=== PATIENT | female | born 1935 | race Caucasian/White ===

== ENCOUNTER → 2016-07-16 | Outpatient (CLI) | payer MEDICARE, BC | END | disposition home or self-care (01) | LOC: MW.CHIM 08:31 | PROVIDERS: ATTEND Internal Medicine | DX: R35.0 Frequency of micturition (principal); N39.0 Urinary tract infection, site not specified; H26.9 Unspecified cataract | CPT/HCPCS: 81001; 87086; 87088; 87186; 99214 ==

== ENCOUNTER → 2016-08-24 | Outpatient (CLI) | payer MEDICARE, BC | LOC: MW.CHIM 08:03 | PROVIDERS: ATTEND Internal Medicine | DX: N39.0 Urinary tract infection, site not specified (principal); I10 Essential (primary) hypertension; E03.9 Hypothyroidism, unspecified | CPT/HCPCS: 81001; 87086; 99214 ==

== ENCOUNTER 2017-07-27 11:18 | Emergency (ER) | payer MEDICARE, BC ==
[2017-07-27] MEDS ORDERED: Ketorolac 60 MG/2 ML SDV IM ONE (11:20)
--- NOTE | 2017-07-27 11:26 | EDM.PDOC ---
ED HPI GENERAL MEDICAL PROBLEM - General Stated Complaint: AMB Time Seen by Provider: 07/27/17 11:18 - History of Present Illness INITIAL COMMENTS - FREE TEXT/NARRATIVE: HISTORY AND PHYSICAL: History of present illness: The patient is an 82-year-old female who follows in our clinic and has a history of hypertension and hypothyroidism and presents via EMS after she slipped on some ice wearing some low heel boots and landed on her left back/rib area and hit her head. The patient says she did not pass out or black out and has no headache but she did hit her head. She's not currently on any blood thinners. She has no neck pain and no midline back pain but has pain at the posterior left rib area and says it radiates around and is worse with movement and deep breaths. She's not nauseated and has no abdominal complaints and has no pelvis or hip pain. None of her extremities are painful. Prior to these events she was in her usual state of good health and had no systemic complaints. Patient says she was seen in the clinic a few days ago and was placed on antibiotics for UTI. According to the computer she was seen on July 22 and had a positive urine culture for Escherichia coli and is currently on antibiotics. Review of systems: As per history of present illness and below otherwise all systems reviewed and negative. Past medical history: As per history of present illness and as reviewed below otherwise noncontributory. Surgical history: As per history of present illness and as reviewed below otherwise noncontributory. Social history: No reported history of drug or alcohol abuse. Family history: As per history of present illness and as reviewed below otherwise noncontributory. Physical exam: Gen.: Well-developed well-nourished thin female who is nontoxic and vital signs have been reviewed by me. Patient moves easily in the bed but does complain of some discomfort when she tries to sit up. HEENT: Atraumatic, normocephalic, pupils reactive, negative for conjunctival pallor or scleral icterus, mucous membranes moist, throat clear, neck supple, nontender, trachea midline. There is no evidence of any soft tissue scalp injury or facial injuries and there are no midline step-offs or defects of the cervical spine. Lungs: Clear to auscultation, breath sounds equal bilaterally, chest wall/ribs on the left posterior area are tender without crepitus ecchymosis or defects or deformities. Heart: S1S2, regular, negative for clicks, rubs, or JVD. Abdomen: Soft, nondistended, nontender. Negative for masses or hepatosplenomegaly. Negative for costovertebral tenderness. Pelvis: Stable nontender. No lateral hip tenderness Genitourinary: Deferred. Rectal: Deferred. Extremities: Atraumatic, negative for cords or calf pain. Neurovascular unremarkable. Full range of motion without defects or deficits Neuro: Awake, alert, oriented. Cranial nerves II through XII unremarkable. Cerebellum unremarkable. Motor and sensory unremarkable throughout. Exam nonfocal. Back: There are no midline step-offs tenderness defects of the thoracic or lumbar spine but there is the posterior left rib pain as described above. There is no posterior pelvis pain Diagnostics: X-ray of left ribs with chest x-ray, thoracic spine x-ray, CT scan of the head, EKG, CBC and CMP Therapeutics: Toradol Patient is currently on antibiotics for her UTI Patient is pain-free with the small dose of Toradol. I've explained to her all testing results and that she will likely be sore tomorrow and she use over-the- counter medications for pain apply ice to areas of discomfort and follow-up with her provider in the clinic. I've also advised her to increase duration as her BUN is 20. Impression: Fall with left chest wall/rib contusion, closed head injury stable; recently diagnosed UTI on antibiotics Definitive disposition and diagnosis as appropriate pending reevaluation and review of above. 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: Musculoskeletal History: Reports: None Neurological History: Reports: None Psychiatric History: Reports: None Endocrine/Metabolic History: Reports: None Hematologic History: Reports: None Immunologic History: Reports: None Oncologic (Cancer) History: Reports: None Dermatologic History: Reports: None - Infectious Disease History Infectious Disease History: Reports: Chicken Pox - Past Surgical History Head Surgeries/Procedures: Reports: None HEENT Surgical History: Reports: None GI Surgical History: Reports: None Social & Family History - Family History Family Medical History: Noncontributory - Tobacco Use Smoking Status *Q: Never Smoker - Recreational Drug Use Recreational Drug Use: No ED ROS GENERAL - Review of Systems Review Of Systems: ROS reveals no pertinent complaints other than HPI. ED EXAM, GENERAL - Physical Exam Exam: See Below (See dictation) Course - Vital Signs Last Recorded V/S: Last Vital Signs Temp 36.1 C 07/27/17 11:25 Pulse 66 07/27/17 13:00 Resp 18 07/27/17 13:00 BP 115/69 07/27/17 13:00 Pulse Ox 98 07/27/17 13:00 - Orders/Labs/Meds Orders: Active Orders 24 hr Category Date Time Status EKG Documentation Completion [RC] STAT Care 07/27/17 11:19 Active Head wo Cont [CT] Stat Exams 07/27/17 11:19 Taken Ribs 2V w Chest Lt [CR] Stat Exams 07/27/17 11:20 Taken Thoracic Spine 2V [CR] Stat Exams 07/27/17 11:20 Taken Labs: Laboratory Tests 07/27/17 07/27/17 Range/Units 11:35 11:35 WBC 6.43 (4.0-11.0) K/uL RBC 3.97 L (4.30-5.90) M/uL Hgb 12.5 (12.0-16.0) g/dL Hct 36.7 (36.0-46.0) % MCV 92.4 (80.0-98.0) fL MCH 31.5 (27.0-32.0) pg MCHC 34.1 (31.0-37.0) g/dL RDW Std Deviation 41.1 (28.0-62.0) fl RDW Coeff of [place] 12 (11.0-15.0) % Plt Count 225 (150-400) K/uL MPV 9.00 (7.40-12.00) fL Neut % (Auto) 47.6 L (48.0-80.0) % Lymph % (Auto) 38.4 (16.0-40.0) % [place] % (Auto) 10.6 (0.0-15.0) % Eos % (Auto) 2.8 (0.0-7.0) % Baso % (Auto) 0.6 (0.0-1.5) % Neut # (Auto) 3.1 (1.4-5.7) K/uL Lymph # (Auto) 2.5 H (0.6-2.4) K/uL [place] # (Auto) 0.7 (0.0-0.8) K/uL Eos # (Auto) 0.2 (0.0-0.7) K/uL Baso # (Auto) 0.0 (0.0-0.1) K/uL Nucleated RBC % 0.0 /100WBC Nucleated RBCs # 0 K/uL Sodium 142 (136-145) mmol/L Potassium 4.4 (3.5-5.1) mmol/L Chloride 105 (98-107) mmol/L Carbon Dioxide 29.7 (21.0-32.0) mmol/L BUN 20 H (7.0-18.0) mg/dL Creatinine 1.1 H (0.6-1.0) mg/dL Est Cr Clr Drug Dosing 32.26 mL/min Estimated GFR (MDRD) 47.8 ml/min Glucose 93 (74-106) mg/dL Calcium 9.1 (8.5-10.1) mg/dL Total Bilirubin 0.4 (0.2-1.0) mg/dL AST 22 (15-37) U/L ALT 24 (14-63) U/L Alkaline Phosphatase 73 (46-116) U/L Total Protein 7.2 (6.4-8.2) g/dL Albumin 3.7 (3.4-5.0) g/dL Globulin 3.5 (2.0-3.5) g/dL Albumin/Globulin Ratio 1.1 L (1.3-2.8) Meds: Medications Discontinued Medications Generic Name Dose Route Start Last Admin Trade Name Freq PRN Reason Stop Dose Admin Ketorolac Tromethamine 15 mg 07/27/17 11:35 07/27/17 11:56 Toradol IM 03/03/18 11:36 15 mg ONETIME ONE Administration Departure - Departure Time of Disposition: 13:41 Disposition: Home, Self-Care 01 Condition: Good Clinical Impression: Fall Qualifiers: Encounter type: initial encounter Qualified Code(s): W19.XXXA - Unspecified fall, initial encounter Contusion of chest wall Qualifiers: Encounter type: initial encounter Laterality: left Qualified Code(s): S20.212A - Contusion of left front wall of thorax, initial encounter Closed head injury Qualifiers: Encounter type: initial encounter Qualified Code(s): S09.90XA - Unspecified injury of head, initial encounter - Discharge Information Additional Instructions: The following information is given to patients seen in the emergency department who are being discharged to home. This information is to outline your options for follow-up care. We provide all patients seen in our emergency department with a follow-up referral. The need for follow-up, as well as the timing and circumstances, are variable depending upon the specifics of your emergency department visit. If you don't have a primary care physician on staff, we will provide you with a referral. We always advise you to contact your personal physician following an emergency department visit to inform them of the circumstance of the visit and for follow-up with them and/or the need for any referrals to a consulting specialist. The emergency department will also refer you to a specialist when appropriate. This referral assures that you have the opportunity for followup care with a specialist. All of these measure are taken in an effort to provide you with optimal care, which includes your followup. Under all circumstances we always encourage you to contact your private physician who remains a resource for coordinating your care. When calling for followup care, please make the office aware that this follow-up is from your recent emergency room visit. If for any reason you are refused follow-up, please contact the [facility] emergency department at and ask to speak to the emergency department charge nurse. [facility] Primary care- Internal Medicine and Family [address] [address] Please expect aches and pains the next few days to one week. Apply ice to or areas of swelling and discomfort for the next 24-36 hours and then switch to heat. Please use [id number] medications for pain and discomfort and call and follow-up in the clinic for follow-up care in the next few days. Return to ER as needed and as discussed - My Orders Last 24 Hours: My Active Orders 07/27/17 11:19 EKG Documentation Completion [RC] STAT Head wo Cont [CT] Stat 07/27/17 11:20 Ribs 2V w Chest Lt [CR] Stat Thoracic Spine 2V [CR] Stat - Assessment/Plan Last 24 Hours: My Active Orders 07/27/17 11:19 EKG Documentation Completion [RC] STAT Head wo Cont [CT] Stat 07/27/17 11:20 Ribs 2V w Chest Lt [CR] Stat Thoracic Spine 2V [CR] Stat
[2017-07-27] MEDS ORDERED: Ketorolac 15 MG/ML SDV IM ONE (11:35)
[2017-07-27 14:04] VITALS: BP 143/71
--- NOTE | 2017-07-29 06:02 | CR ---
EXAM DATE: 07/27/17 PATIENT'S AGE: 82 Patient: EDWINA BERNAL Facility: [place], [place] Site . Site : 1935 Study: XRay Chest Left ribs/chest [id number]/3/2018 12:42:48 PM Ordering Physician: Lottie Arriaga Final Report: INDICATION: Trauma. Fall. Left-sided chest pain. TECHNIQUE: PA chest and 2 detailed views of the left-sided ribs. FINDINGS: Clear lungs. Normal heart size and pulmonary vascularity. Postsurgical change right shoulder. Degenerative change of the shoulder. Detailed views of the left-sided ribs are negative for acute displaced rib fractures. IMPRESSION: Negative chest and detailed left rib views. Dictated by Luis E Bruner MD @ Jul 27 2017 1:25PM (Electronic Signature) Report Signed by Proxy. BERTHA
--- NOTE | 2017-07-29 06:03 | CR ---
EXAM DATE: 07/27/17 PATIENT'S AGE: 82 Patient: EDWINA BERNAL Facility: [place], [place] Site . Site : 1935 Study: XRay Spine Thoracic [id number]/3/2018 12:43:07 PM Ordering Physician: Lottie Arriaga Final Report: INDICATION: Trauma. Fall. Pain. TECHNIQUE: Two views of the thoracic spine. FINDINGS: There are 12 thoracic vertebral bodies. No acute fracture. There is a minor thoracic curvature which may be more positional than real. Slight spurring of the lower most thoracic spine. IMPRESSION: No acute thoracic spine fracture identified. Dictated by Luis E Bruner MD @ Jul 27 2017 1:25PM (Electronic Signature) Report Signed by Proxy. BERTHA
--- NOTE | 2017-07-29 06:04 | CT ---
EXAM DATE: 07/27/17 PATIENT'S AGE: 82 Patient: EDWINA BERNAL Facility: [place], [place] Site . Site : 1935 Study: CT Head [id number] 12:45:45 PM Ordering Physician: Lottie Arriaga Final Report: INDICATION: Trauma. Fall. Pain. TECHNIQUE: Noncontrast head CT. COMPARISON: February 02, 2012. FINDINGS: There is no evidence for acute intracranial hemorrhage, hydrocephalus, mass effect, or shift of midline structures. No evidence for acute ischemic change or infarction. There is minimal spur small-vessel ischemic type change in the deep white matter of the cerebral hemispheres which is chronic. No calvarial or skullbase fracture identified. The included paranasal sinuses and mastoid air cells are clear. IMPRESSION: Negative noncontrast head CT. No significant change. Please note that all CT scans at this facility use dose modulation, iterative reconstruction, and/or weight-based dosing when appropriate to reduce radiation dose to as low as reasonably achievable. Dictated by Luis E Bruner MD @ Jul 27 2017 1:36PM (Electronic Signature) Report Signed by Proxy. BERTHA
== END 2017-07-27 14:02 | disposition home or self-care (01) ==
LOC: MW.ED 11:18
DX: S20.212A Contusion of left front wall of thorax, initial encounter (principal); S09.90XA Unspecified injury of head, initial encounter; N39.0 Urinary tract infection, site not specified; I10 Essential (primary) hypertension; E03.9 Hypothyroidism, unspecified; Z79.899 Other long term (current) drug therapy; Z88.1 Allergy status to other antibiotic agents; W00.0XXA Fall on same level due to ice and snow, initial encounter
CPT/HCPCS: 36415; 70450; 71101; 72070; 80053; 85025; 93005; 96372; 99285; J1885; 99284

== ENCOUNTER 2018-10-01 10:41 | Emergency (ER) | payer MEDICARE, BC ==
--- NOTE | 2018-10-01 11:29 | EDM.PDOC ---
ED HPI GENERAL MEDICAL PROBLEM - General Chief Complaint: Genitourinary Problem Stated Complaint: UTI Time Seen by Provider: 10/01/18 11:15 Source of Information: Reports: Patient History Limitations: Reports: No Limitations - History of Present Illness INITIAL COMMENTS - FREE TEXT/NARRATIVE: History of present illness: []Patient has had 2 days of pain with urination that is progressively worsening. She denies any fevers, chills, back pain, vomiting or diarrhea. States she has had UTIs in the past and this feels exactly the same. Review of systems: As per history of present illness and below otherwise all systems reviewed and negative. Past medical history: As per history of present illness and as reviewed below otherwise noncontributory. Surgical history: As per history of present illness and as reviewed below otherwise noncontributory. Social history: No reported history of drug or alcohol abuse. Family history: As per history of present illness and as reviewed below otherwise noncontributory. Physical exam: General: Well developed, well nourished in NAD HEENT: Atraumatic, normocephalic, pupils reactive, negative for conjunctival pallor or scleral icterus, mucous membranes moist, throat clear, neck supple, nontender, trachea midline. Lungs: Clear to auscultation, breath sounds equal bilaterally, chest nontender. Heart: S1S2, regular, negative for clicks, rubs, or JVD. Abdomen: NABS, Soft, nondistended, nontender. Negative for masses or hepatosplenomegaly. Negative for costovertebral tenderness. Pelvis: Stable nontender. Genitourinary: Deferred. Rectal: Deferred. Extremities: Atraumatic, negative for cords or calf pain. Neurovascular unremarkable. Neuro: Awake, alert, oriented. Cranial nerves II through XII unremarkable. Cerebellum unremarkable. Motor and sensory unremarkable throughout. Exam nonfocal. Skin:warm and dry Diagnostics: UA positive leuk esterase Therapeutics: Pyridium ED Course: Stable Impression: UTI Prescriptions: Nitrofurantoin, pyridium Plan: Increase fluids, Take meds as directed, follow up with your primary care physician, return to ER if symptoms worsen or change. Definitive disposition and diagnosis as appropriate pending reevaluation and review of above. Pelvic Pain Score (Numeric/FACES): 8 - Related Data Allergies Allergy/AdvReac Type Severity Reaction Status Date / Time antibiotic unknown Allergy Confusion Uncoded 07/27/17 11:24 Home Meds: Home Meds Levothyroxine 112 mcg PO DAILY 01/26/16 [History] Losartan/Hydrochlorothiazide [Losartan-HCTZ 100-25 MG] 1 each PO DAILY 01/26/16 [History] Nitrofurantoin Macrocrystal [Macrodantin] 100 mg PO BID #14 capsule 10/01/18 [Rx ] Phenazopyridine [Pyridium] 200 mg PO TID #9 tab 10/01/18 [Rx] Past Medical History HEENT History: Reports: None Cardiovascular History: Reports: Hypertension Respiratory History: Reports: None Gastrointestinal History: Reports: None Genitourinary History: Reports: UTI, Recurrent 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: Musculoskeletal History: Reports: None Neurological History: Reports: None Psychiatric History: Reports: None Endocrine/Metabolic History: Reports: None Hematologic History: Reports: None Immunologic History: Reports: None Oncologic (Cancer) History: Reports: None Dermatologic History: Reports: None - Infectious Disease History Infectious Disease History: Reports: Chicken Pox, Measles, Mumps - Past Surgical History Head Surgeries/Procedures: Reports: None HEENT Surgical History: Reports: None GI Surgical History: Reports: None Social & Family History - Family History Family Medical History: Noncontributory - Tobacco Use Smoking Status *Q: Never Smoker - Recreational Drug Use Recreational Drug Use: No ED ROS GENERAL - Review of Systems Review Of Systems: ROS reveals no pertinent complaints other than HPI. ED EXAM, RENAL/ - Physical Exam Exam: See Below (See history of present illness) Course - Vital Signs Last Recorded V/S: Last Vital Signs Temp 97.1 F 10/01/18 10:52 Pulse 92 10/01/18 10:52 Resp 18 10/01/18 10:52 BP 132/97 H 10/01/18 10:52 Pulse Ox 96 10/01/18 10:52 - Orders/Labs/Meds Orders: Active Orders 24 hr Category Date Time Status CULTURE URINE [RM] Stat Lab 10/01/18 11:00 Received Labs: Laboratory Tests 10/01/18 Range/Units 11:00 Urine Color YELLOW Urine Appearance SLT CLOUDY Urine pH 6.0 (5.0-8.0) Ur Specific [place] 1.020 (1.001-1.035) Urine Protein NEGATIVE (NEGATIVE) mg/dL Urine Glucose (UA) NEGATIVE (NEGATIVE) mg/dL Urine Ketones NEGATIVE (NEGATIVE) mg/dL Urine Occult Blood NEGATIVE (NEGATIVE) Urine Nitrite NEGATIVE (NEGATIVE) Urine Bilirubin NEGATIVE (NEGATIVE) Urine Urobilinogen 0.2 (<2.0) EU/dL Ur Leukocyte Esterase SMALL H (NEGATIVE) Urine RBC 0-2 (0-2/HPF) Urine WBC 10-20 (0-5/HPF) Ur Epithelial Cells FEW (NONE-FEW) Urine Bacteria FEW (NEGATIVE) Meds: Medications Discontinued Medications Generic Name Dose Route Start Last Admin Trade Name Freq PRN Reason Stop Dose Admin Phenazopyridine HCl 200 mg 10/01/18 11:20 Pyridium PO 10/01/18 11:21 ONETIME ONE Departure - Departure Time of Disposition: 11:28 Disposition: Home, Self-Care 01 Condition: Good Clinical Impression: UTI (urinary tract infection) Qualifiers: Urinary tract infection type: site unspecified Hematuria presence: without hematuria Qualified Code(s): N39.0 - Urinary tract infection, site not specified - Discharge Information *PRESCRIPTION DRUG MONITORING PROGRAM REVIEWED*: No *COPY OF PRESCRIPTION DRUG MONITORING REPORT IN PATIENT ANTON: No Prescriptions: Nitrofurantoin Macrocrystal [Macrodantin] 100 mg PO BID #14 capsule Phenazopyridine [Pyridium] 200 mg PO TID #9 tab Referrals: PCP,Unknown [Primary Care Provider] - Additional Instructions: The following information is given to patients seen in the emergency department who are being discharged to home. This information is to outline your options for follow-up care. We provide all patients seen in our emergency department with a follow-up referral. The need for follow-up, as well as the timing and circumstances, are variable depending upon the specifics of your emergency department visit. If you don't have a primary care physician on staff, we will provide you with a referral. We always advise you to contact your personal physician following an emergency department visit to inform them of the circumstance of the visit and for follow-up with them and/or the need for any referrals to a consulting specialist. The emergency department will also refer you to a specialist when appropriate. This referral assures that you have the opportunity for follow-up care with a specialist. All of these measure are taken in an effort to provide you with optimal care, which includes your follow-up. Under all circumstances we always encourage you to contact your private physician who remains a resource for coordinating your care. When calling for follow-up care, please make the office aware that this follow-up is from your recent emergency room visit. If for any reason you are refused follow-up, please contact the [facility] Emergency Department at and asked to speak to the emergency department charge nurse. Take meds as directed, follow up with your primary care physician, return to ER if symptoms worsen or change. [facility] Primary Care [address] [place] [id number] - My Orders Last 24 Hours: My Active Orders 10/01/18 11:00 CULTURE URINE [RM] Stat - Assessment/Plan Last 24 Hours: My Active Orders 10/01/18 11:00 CULTURE URINE [RM] Stat
[2018-10-01] MEDS: Phenazopyridine 200 MG Tab PO ONE (11:44)
[2018-10-01 11:52] VITALS: BP 149/72
== END 2018-10-01 11:52 | disposition home or self-care (01) ==
LOC: MW.ED 10:41
DX: N39.0 Urinary tract infection, site not specified (principal); I10 Essential (primary) hypertension; Z79.899 Other long term (current) drug therapy; Z88.1 Allergy status to other antibiotic agents
CPT/HCPCS: 81001; 87086; 87088; 87186; 99283; A9270

== ENCOUNTER 2019-11-22 09:27 | Emergency (ER) | payer MEDICARE, BC ==
[2019-11-22] MEDS ORDERED: Dexamethasone 4 MG Tab PO ONE (09:45)
[2019-11-22] MEDS ORDERED: Acetaminophen 500 MG Tab PO ONE (09:46)
--- NOTE | 2019-11-22 09:53 | EDM.PDOC ---
ED HPI GENERAL MEDICAL PROBLEM - General Chief Complaint: Genitourinary Problem Stated Complaint: LOWER BACK PAIN Time Seen by Provider: 11/22/19 09:39 - History of Present Illness INITIAL COMMENTS - FREE TEXT/NARRATIVE: History of present illness: [] Patient presents with atraumatic afebrile low back pain that is worse on the right radiates into the right buttocks she denies any difficulty with weakness no trouble urinating no numbness in the lower extremities. There is been no falls no heavy lifting pain started several days ago and has not gotten better by itself. She has not tried anything for the pain. Getting up and down makes it worse being still makes it better no dysuria no fever no cough no congestion no weakness no nausea no vomiting. Review of systems: As per history of present illness and below otherwise all systems reviewed and negative. Past medical history: As per history of present illness and as reviewed below otherwise noncontributory. Surgical history: As per history of present illness and as reviewed below otherwise noncontributory. Social history: No reported history of drug or alcohol abuse. Family history: As per history of present illness and as reviewed below otherwise nonc ontributory. Physical exam: HEENT: Atraumatic, normocephalic, pupils reactive, negative for conjunctival pallor or scleral icterus, mucous membranes moist, throat clear, neck supple, nontender, trachea midline. Lungs: Clear to auscultation, breath sounds equal bilaterally, chest nontender. Heart: S1S2, regular, negative for clicks, rubs, or JVD. Abdomen: Soft, nondistended, nontender. Negative for masses or hepatosplenomegaly. Negative for costovertebral tenderness. Pelvis: Stable nontender. Genitourinary: Deferred. Rectal: Deferred. Extremities: Atraumatic, negative for cords or calf pain. Neurovascular unremarkable. Neuro: Awake, alert, oriented. Cranial nerves II through XII unremarkable. Cerebellum unremarkable. Motor and sensory unremarkable throughout. Exam nonfocal. No saddle anesthesia great toe strength is normal Back: The spine has no focal tenderness at any level there is tenderness and spasm lateral to L3 on the right side with palpable muscle spasm re-creating the pain she is experiencing. Diagnostics: [] Therapeutics: [] Impression: Low back pain with radiculopathy [] Plan: Steroids pain meds muscle spasm medication follow-up with primary care [] Definitive disposition and diagnosis as appropriate pending reevaluation and review of above. lower back Pain Score (Numeric/FACES): 5 - Related Data Allergies Allergy/AdvReac Type Severity Reaction Status Date / Time No Known Allergies Allergy Verified 11/22/19 09:38 Home Meds: Home Meds Levothyroxine 112 mcg PO DAILY 01/26/16 [History] Losartan/Hydrochlorothiazide [Losartan-HCTZ 100-25 MG] 1 each PO DAILY 01/26/16 [History] Metaxalone [Skelaxin] 800 mg PO TID #30 tab 11/22/19 [Rx] predniSONE 60 mg PO WITHBREAKFAST 5 Days #15 tab 11/22/19 [Rx] traMADol [Ultram] 50 mg PO Q6H PRN #20 tab 11/22/19 [Rx] Past Medical History HEENT History: Reports: None Cardiovascular History: Reports: Hypertension Respiratory History: Reports: None Gastrointestinal History: Reports: None Genitourinary History: Reports: UTI, Recurrent 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: Musculoskeletal History: Reports: None Neurological History: Reports: None Psychiatric History: Reports: None Endocrine/Metabolic History: Reports: None Hematologic History: Reports: None Immunologic History: Reports: None Oncologic (Cancer) History: Reports: None Dermatologic History: Reports: None - Infectious Disease History Infectious Disease History: Reports: Chicken Pox - Past Surgical History Head Surgeries/Procedures: Reports: None HEENT Surgical History: Reports: None GI Surgical History: Reports: None Social & Family History - Family History Family Medical History: Noncontributory - Tobacco Use Smoking Status *Q: Never Smoker Second Hand Smoke Exposure: No - Caffeine Use Caffeine Use: Reports: Coffee - Recreational Drug Use Recreational Drug Use: No ED ROS GENERAL - Review of Systems Review Of Systems: See Below ED EXAM, GENERAL - Physical Exam Exam: See Below Course - Vital Signs Last Recorded V/S: Last Vital Signs Temp 36.0 C L 11/22/19 09:36 Pulse 75 11/22/19 09:36 Resp 17 11/22/19 09:36 BP 137/117 H 11/22/19 09:36 Pulse Ox 95 11/22/19 09:36 - Orders/Labs/Meds Orders: Active Orders 24 hr Category Date Time Status Acetaminophen [Tylenol Extra Strength] Med 06/28/20 09:46 Once 1,000 mg PO ONETIME ONE dexAMETHasone Med 11/22/19 09:45 Once 8 mg PO ONETIME ONE Departure - Departure Time of Disposition: 09:48 Disposition: Home, Self-Care 01 Condition: Good Clinical Impression: Low back pain potentially associated with radiculopathy - Discharge Information *PRESCRIPTION DRUG MONITORING PROGRAM REVIEWED*: Not Applicable *COPY OF PRESCRIPTION DRUG MONITORING REPORT IN PATIENT ANTON: Not Applicable Instructions: Acute Back Pain, Adult Referrals: Symone Moreland REBEAMER [Primary Care Provider] - Additional Instructions: The following information is given to patients seen in the emergency department who are being discharged to home. This information is to outline your options for follow-up care. We provide all patients seen in our emergency department with a follow-up referral. The need for follow-up, as well as the timing and circumstances, are variable depending upon the specifics of your emergency department visit. If you don't have a primary care physician on staff, we will provide you with a referral. We always advise you to contact your personal physician following an emergency department visit to inform them of the circumstance of the visit and for follow-up with them and/or the need for any referrals to a consulting specialist. The emergency department will also refer you to a specialist when appropriate. This referral assures that you have the opportunity for follow-up care with a specialist. All of these measure are taken in an effort to provide you with optimal care, which includes your follow-up. Under all circumstances we always encourage you to contact your private physician who remains a resource for coordinating your care. When calling for f ollow-up care, please make the office aware that this follow-up is from your recent emergency room visit. If for any reason you are refused follow-up, please contact the [facility] Emergency Department at and asked to speak to the emergency department charge nurse. Sepsis Event Note (ED) - Evaluation Sepsis Screening Result: No Definite Risk - Focused Exam Vital Signs: Vital Signs Temp Pulse Resp BP Pulse Ox 11/22/19 09:36 36.0 C L 75 17 137/117 H 95 - My Orders Last 24 Hours: My Active Orders 11/22/19 09:45 dexAMETHasone 8 mg PO ONETIME ONE 11/22/19 09:46 Acetaminophen [Tylenol Extra Strength] 1,000 mg PO ONETIME ONE - Assessment/Plan Last 24 Hours: My Active Orders 11/22/19 09:45 dexAMETHasone 8 mg PO ONETIME ONE 11/22/19 09:46 Acetaminophen [Tylenol Extra Strength] 1,000 mg PO ONETIME ONE
[2019-11-22 10:05] VITALS: BP 148/70; PULSE 85
== END 2019-11-22 10:05 | disposition home or self-care (01) ==
LOC: MW.ED 09:27
DX: M54.16 Radiculopathy, lumbar region (principal); I10 Essential (primary) hypertension; Z79.899 Other long term (current) drug therapy
CPT/HCPCS: 99283; A9270; J8540; 99282

== ENCOUNTER 2020-04-12 02:41 | Emergency (ER) | payer MEDICARE, BC ==
[2020-04-12] MEDS ORDERED: Phenazopyridine 200 MG Tab PO ONE (02:57)
--- NOTE | 2020-04-12 03:01 | EDM.PDOC ---
ED HPI GENERAL MEDICAL PROBLEM - General Chief Complaint: Genitourinary Problem Stated Complaint: UTI, BLADDER INFECTION Time Seen by Provider: 04/12/20 02:57 - History of Present Illness INITIAL COMMENTS - FREE TEXT/NARRATIVE: History of present illness: [] She has started burning when she urinates. It is fairly severe burning and bothers her a great deal. She has no flank pain fever nausea or vomiting. Occasional UTIs in the past. September of last year she had E. coli UTI sensitive to tetracycline Keflex Macrodantin and Bactrim. She does not remember what she took. It was resistant to Cipro. Review of systems: As per history of present illness and below otherwise all systems reviewed and negative. Past medical history: As per history of present illness and as reviewed below otherwise noncontributory. Surgical history: As per history of present illness and as reviewed below otherwise noncontributory. Social history: No reported history of drug or alcohol abuse. Family history: As per history of present illness and as reviewed below otherwise noncontributory. Physical exam: Constitutional - well developed, well-nourished and in no acute distress HEENT - normocephalic, no evidence of trauma - external nose and mouth normal - no mass in neck and no JVD - mucosae moist EYES - full EOM, PERRL, no icterus - no evidence of inflammation, injection, or drainage Respiratory - no respiratory distress, equal bilateral expansion. Lungs clear Heart sounds normal with S1 and S2 and no murmur. Abdomen not tender Musculoskeletal no gross deformity of long bones or joints Neurologic - Alert and oriented times four - CN II-XII grossly intact - motor sensory and coordination symmetrically normal Psychiatric - appropriate mood and affect with normal thought content Integument - no rash or evidence of trauma - normal turgor Diagnostics: [] Therapeutics: [] Impression: [] Plan: [] Definitive disposition and diagnosis as appropriate pending reevaluation and review of above. urinary area Pain Score (Numeric/FACES): 8 - Related Data Allergies Allergy/AdvReac Type Severity Reaction Status Date / Time No Known Allergies Allergy Verified 04/12/20 02:53 Home Meds: Home Meds Levothyroxine 112 mcg PO DAILY 01/26/16 [History] Losartan/Hydrochlorothiazide [Losartan-HCTZ 100-25 MG] 1 each PO DAILY 01/26/16 [History] Metaxalone [Skelaxin] 800 mg PO TID #30 tab 11/22/19 [Rx] predniSONE 60 mg PO WITHBREAKFAST 5 Days #15 tab 11/22/19 [Rx] traMADol [Ultram] 50 mg PO Q6H PRN #20 tab 11/22/19 [Rx] Phenazopyridine [Pyridium] 100 mg PO TID #6 tablet 04/12/20 [Rx] cephALEXin [Cephalexin] 250 mg PO TID #21 ml 04/12/20 [Rx] Past Medical History HEENT History: Reports: None Cardiovascular History: Reports: Hypertension Respiratory History: Reports: None Gastrointestinal History: Reports: None Genitourinary History: Reports: UTI, Recurrent 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: Musculoskeletal History: Reports: None Neurological History: Reports: None Psychiatric History: Reports: None Endocrine/Metabolic History: Reports: None Hematologic History: Reports: None Immunologic History: Reports: None Oncologic (Cancer) History: Reports: None Dermatologic History: Reports: None - Infectious Disease History Infectious Disease History: Reports: Chicken Pox - Past Surgical History Head Surgeries/Procedures: Reports: None HEENT Surgical History: Reports: None GI Surgical History: Reports: None Social & Family History - Family History Family Medical History: No Pertinent Family History - Caffeine Use Caffeine Use: Reports: Coffee ED ROS GENERAL - Review of Systems Review Of Systems: Comprehensive ROS is negative, except as noted in HPI. ED EXAM, GENERAL - Physical Exam Exam: See Below Free Text/Narrative:: Physical exam is in the HPI Course - Vital Signs Last Recorded V/S: Last Vital Signs Temp 36.3 C 04/12/20 02:54 Pulse 86 04/12/20 02:54 Resp 18 04/12/20 02:54 BP 146/82 H 04/12/20 02:54 Pulse Ox 96 04/12/20 02:54 - Orders/Labs/Meds Orders: Active Orders 24 hr Category Date Time Status CULTURE URINE [RM] Stat Lab 04/12/20 02:50 Received Labs: Laboratory Tests 04/12/20 Range/Units 02:52 Urine Color YELLOW Urine Appearance CLOUDY Urine pH 6.5 (5.0-8.0) Ur Specific [place] <= 1.005 (1.001-1.035) Urine Protein NEGATIVE (NEGATIVE) mg/dL Urine Glucose (UA) NEGATIVE (NEGATIVE) mg/dL Urine Ketones NEGATIVE (NEGATIVE) mg/dL Urine Occult Blood TRACE-INTACT H (NEGATIVE) Urine Nitrite NEGATIVE (NEGATIVE) Urine Bilirubin NEGATIVE (NEGATIVE) Urine Urobilinogen 0.2 (<2.0) EU/dL Ur Leukocyte Esterase LARGE H (NEGATIVE) Urine RBC 0-3 (0-2/HPF) Urine WBC TO NUMEROUS TO COUNT H (0-5/HPF) Ur Epithelial Cells OCCASIONAL (NONE-FEW) Urine Bacteria 1+ H (NEGATIVE) Urine Mucus LIGHT (NONE-MOD) Meds: Medications Discontinued Medications Generic Name Dose Route Start Last Admin Trade Name Freq PRN Reason Stop Dose Admin Cephalexin 500 mg 04/12/20 03:16 Keflex PO 04/12/20 03:17 ONETIME ONE Phenazopyridine HCl 200 mg 04/12/20 02:57 04/12/20 03:03 Pyridium PO 04/12/20 02:58 200 mg ONETIME ONE Administration Departure - Departure Time of Disposition: 03:21 Disposition: Home, Self-Care 01 Condition: Good Clinical Impression: Acute cystitis - Discharge Information Prescriptions: cephALEXin [Cephalexin] 250 mg PO TID #21 ml Phenazopyridine [Pyridium] 100 mg PO TID #6 tablet Instructions: Urinary Tract Infection, Adult, [id number] Referrals: Symone Moreland NP [Primary Care Provider] - Forms: ED Department Discharge Additional Instructions: [facility] - Primary Care [address] [place], [place] [id number] [place] [address] The following information is given to patients seen in the emergency department who are being discharged to home. This information is to outline your options for follow-up care. We provide all patients seen in our emergency department with a follow-up referral. The need for follow-up, as well as the timing and circumstances, are variable depending upon the specifics of your emergency department visit. If you don't have a primary care physician on staff, we will provide you with a referral. We always advise you to contact your personal physician following an emergency department visit to inform them of the circumstance of the visit and for follow-up with them and/or the need for any referrals to a consulting specialist. The emergency department will also refer you to a specialist when appropriate. This referral assures that you have the opportunity for follow-up care with a specialist. All of these measure are taken in an effort to provide you with optimal care, which includes your follow-up. Under all circumstances we always encourage you to contact your private physician who remains a resource for coordinating your care. When calling for follow-up care, please make the office aware that this follow-up is from your recent emergency room visit. If for any reason you are refused follow-up, please contact the [facility] Emergency Department at and asked to speak to the emergency department charge nurse. Sepsis Event Note (ED) - Focused Exam Vital Signs: Vital Signs Temp Pulse Resp BP Pulse Ox 04/12/20 02:54 36.3 C 86 18 146/82 H 96 - My Orders Last 24 Hours: My Active Orders 04/12/20 02:50 CULTURE URINE [RM] Stat - Assessment/Plan Last 24 Hours: My Active Orders 04/12/20 02:50 CULTURE URINE [RM] Stat
[2020-04-12] MEDS ORDERED: Cephalexin 500 MG Cap PO ONE (03:16)
[2020-04-12 03:38] VITALS: BP 150/75; PULSE 77
== END 2020-04-12 03:40 | disposition home or self-care (01) ==
LOC: MW.ED 02:41
DX: N30.00 Acute cystitis without hematuria (principal); I10 Essential (primary) hypertension; Z79.899 Other long term (current) drug therapy
CPT/HCPCS: 81001; 87086; 87088; 87186; 99283; A9270

== ENCOUNTER 2020-04-23 10:15 | Emergency (ER) | payer MEDICARE, BC ==
--- NOTE | 2020-04-23 10:40 | EDM.PDOC ---
ED HPI GENERAL MEDICAL PROBLEM - General Chief Complaint: Genitourinary Problem Stated Complaint: BLADDING PAIN Time Seen by Provider: 04/23/20 10:27 Source of Information: Reports: Patient History Limitations: Reports: No Limitations - History of Present Illness INITIAL COMMENTS - FREE TEXT/NARRATIVE: Gurpreet with continued dysuria. The patient was seen in this emergency room on 04/12/2020 with a chief complaint of burning with urination. She had no other symptoms. A review of the records indicates she has had occasional UTIs in the past in September of this past year she had an E. coli UTI sensitive to tetracycline, Keflex, Macrodantin and Bactrim. It was resistant to Cipro. She did not recall which antibiotic she took on that occasion. On 04/12 she was prescribed Keflex. Culture grew out E. coli susceptible to cephalosporins. She states she completed her prescription and her symptoms resolved only to recur today. She denies fever, nausea, flank or back pain or any other symptoms. In fact she states she feels very well except for the irritation in her bladder. abdominal Pain Score (Numeric/FACES): 6 - Related Data Allergies Allergy/AdvReac Type Severity Reaction Status Date / Time No Known Allergies Allergy Verified 04/23/20 10:38 Home Meds: Home Meds Levothyroxine 112 mcg PO DAILY 01/26/16 [History] Losartan/Hydrochlorothiazide [Losartan-HCTZ 100-25 MG] 1 each PO DAILY 01/26/16 [History] Metaxalone [Skelaxin] 800 mg PO TID #30 tab 11/22/19 [Rx] predniSONE 60 mg PO WITHBREAKFAST 5 Days #15 tab 11/22/19 [Rx] traMADol [Ultram] 50 mg PO Q6H PRN #20 tab 11/22/19 [Rx] Phenazopyridine [Pyridium] 100 mg PO TID #6 tablet 04/12/20 [Rx] cephALEXin [Cephalexin] 250 mg PO TID #21 capsule 04/12/20 [Rx] Nitrofurantoin Monohyd/M-Cryst [Macrobid 100 mg Capsule] 100 mg PO BID #20 capsule 04/23/20 [Rx] Past Medical History HEENT History: Reports: None Cardiovascular History: Reports: Hypertension Respiratory History: Reports: None Gastrointestinal History: Reports: None Genitourinary History: Reports: UTI, Recurrent 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: Musculoskeletal History: Reports: None Neurological History: Reports: None Psychiatric History: Reports: None Endocrine/Metabolic History: Reports: None Insulin Pump Model 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 Hematologic History: Reports: None Immunologic History: Reports: None Oncologic (Cancer) History: Reports: None Dermatologic History: Reports: None - Infectious Disease History Infectious Disease History: Reports: Chicken Pox - Past Surgical History Head Surgeries/Procedures: Reports: None HEENT Surgical History: Reports: None GI Surgical History: Reports: None Social & Family History - Family History Family Medical History: No Pertinent Family History - Caffeine Use Caffeine Use: Reports: Coffee ED ROS GENERAL - Review of Systems Review Of Systems: Comprehensive ROS is negative, except as noted in HPI. ED EXAM, RENAL/ - Physical Exam Exam: See Below Exam Limited By: No Limitations General Appearance: Alert, No Apparent Distress Ears: Normal External Exam Nose: Normal Inspection Throat/Mouth: Normal Inspection Head: Atraumatic, Normocephalic Neck: Normal Inspection Respiratory/Chest: No Respiratory Distress, Lungs Clear, Normal Breath Sounds Cardiovascular: Normal Peripheral Pulses, Regular Rate, Rhythm, No Murmur GI/Abdominal: Soft, Non-Tender Extremities: Normal Inspection Neurological: Alert, Oriented Psychiatric: Normal Affect, Normal Mood Skin Exam: Warm, Dry, Intact, Normal Color, No Rash Lymphatic: No Adenopathy Course - Vital Signs Last Recorded V/S: Last Vital Signs Temp 36.2 C 04/23/20 10:24 Pulse 87 04/23/20 10:24 Resp 18 04/23/20 10:24 BP 167/83 H 04/23/20 10:24 Pulse Ox 97 04/23/20 10:24 - Orders/Labs/Meds Orders: Active Orders 24 hr Category Date Time Status URINALYSIS W/MICROSCOPIC [UA W/MICROSCOPIC] [URIN] Stat Lab 04/23/20 10:36 Ordered Departure - Departure Time of Disposition: 11:27 Disposition: Home, Self-Care 01 Condition: Good Clinical Impression: UTI (urinary tract infection) Qualifiers: Urinary tract infection type: site unspecified Hematuria presence: without hematuria Qualified Code(s): N39.0 - Urinary tract infection, site not specified - Discharge Information Referrals: PCP,None [Primary Care Provider] - Symone Moreland NP [Ordering Only Provider] - Forms: ED Department Discharge Additional Instructions: The following information is given to patients seen in the emergency department who are being discharged to home. This information is to outline your options for follow-up care. We provide all patients seen in our emergency department with a follow-up referral. The need for follow-up, as well as the timing and circumstances, are variable depending upon the specifics of your emergency department visit. If you don't have a primary care physician on staff, we will provide you with a referral. We always advise you to contact your personal physician following an emergency department visit to inform them of the circumstance of the visit and for follow-up with them and/or the need for any referrals to a consulting specialist. The emergency department will also refer you to a specialist when appropriate. This referral assures that you have the opportunity for follow-up care with a specialist. All of these measure are taken in an effort to provide you with optimal care, which includes your follow-up. Under all circumstances we always encourage you to contact your private physician who remains a resource for coordinating your care. When calling for follow-up care, please make the office aware that this follow-up is from your recent emergency room visit. If for any reason you are refused follow-up, please contact the [facility] Emergency Department at and asked to speak to the emergency department charge nurse. 1. Take your antibiotic twice daily. 2. Drink lots of water or other liquids. 3. Take AZO (over the counter bladder pain medication--ask the pharmacist) for your bladder irritation. 4. Return to the ER promptly for vomiting, fever, back pain, new or worsening symptoms. Sepsis Event Note (ED) - Evaluation Sepsis Screening Result: No Definite Risk - Focused Exam Vital Signs: Vital Signs Temp Pulse Resp BP Pulse Ox 04/23/20 10:24 36.2 C 87 18 167/83 H 97 - My Orders Last 24 Hours: My Active Orders 04/23/20 10:36 URINALYSIS W/MICROSCOPIC [UA W/MICROSCOPIC] [URIN] Stat - Assessment/Plan Last 24 Hours: My Active Orders 04/23/20 10:36 URINALYSIS W/MICROSCOPIC [UA W/MICROSCOPIC] [URIN] Stat
[2020-04-23 19:39] VITALS: BP 136/53; PULSE 82
--- NOTE | 2020-04-24 09:56 | PCM.SN.2 ---
- Free Text/Narrative Note: Patient presented to the emergency department requesting an alternative antibiotic for her urinary tract infection. She was seen in the emergency department yesterday and diagnosed with a UTI. She was prescribed nitrofurantoin. She went home and took 1 dose last night and noted that she started having some unpleasant abdominal side effects including cramping and abdominal discomfort. She is requesting an alternative antibiotic. She declines physician evaluation, interview was conducted by a registered nurse. Chart review shows that prior UTIs were sensitive to cephalexin. I sent a 1 week course of cephalexin to the pharmacy on file. Patient understands that she needs to follow-up with her primary medical doctor the next few days for reevaluation. In the meantime she will discontinue the nitrofurantoin.
== END 2020-04-23 12:05 | disposition home or self-care (01) ==
LOC: MW.ED 10:15
DX: N39.0 Urinary tract infection, site not specified (principal); I10 Essential (primary) hypertension; Z79.899 Other long term (current) drug therapy
CPT/HCPCS: 81001; 99282; 99283

== ENCOUNTER 2020-05-17 13:28 | Emergency (ER) | payer MEDICARE, BC ==
[2020-05-17] MEDS ORDERED: Sodium Chloride 0.9% 10 ML Syringe FLUSH PRN (13:53)
[2020-05-17] MEDS ORDERED: Sodium Chloride 0.9% 2.5 ML Syringe FLUSH PRN (13:53)
--- NOTE | 2020-05-17 14:16 | EDM.PDOC ---
ED HPI GENERAL MEDICAL PROBLEM - General Chief Complaint: Chest Pain Stated Complaint: CHEST/ABDOMEN PAIN Time Seen by Provider: 05/17/20 13:29 - History of Present Illness INITIAL COMMENTS - FREE TEXT/NARRATIVE: Patient is an 84-year-old female with a history of hypothyroidism, HL, hypertension no prior cardiac history non-smoker who is presenting with left- sided chest pain. The patient states that since around 9:30 in the morning she has had 3 out of 10 left-sided nonradiating chest pain when it comes on it is approximately 3 out of 10 it lasts for a few seconds and then fades away. There is no clear trigger though she notes that it started after eating something sugary for breakfast. No exacerbating or alleviating factors no radiation she denies associated shortness of breath nausea vomiting diarrhea or any other symptoms. Her primary care doctor is through [facility] she called them and was directed here. She felt well prior to the symptom onset. Chest Pain Score (Numeric/FACES): 4 - Related Data Allergies Allergy/AdvReac Type Severity Reaction Status Date / Time No Known Allergies Allergy Verified 05/17/20 13:38 Home Meds: Home Meds Levothyroxine 112 mcg PO DAILY 01/26/16 [History] Losartan/Hydrochlorothiazide [Losartan-HCTZ 100-25 MG] 1 each PO DAILY 01/26/16 [History] Metaxalone [Skelaxin] 800 mg PO TID #30 tab 11/22/19 [Rx] traMADol [Ultram] 50 mg PO Q6H PRN #20 tab 11/22/19 [Rx] Past Medical History HEENT History: Reports: None Cardiovascular History: Reports: Hypertension Respiratory History: Reports: None Gastrointestinal History: Reports: None Genitourinary History: Reports: UTI, Recurrent NIGHT NURSE History: Reports: Musculoskeletal History: Reports: None Neurological History: Reports: None Psychiatric History: Reports: None Endocrine/Metabolic History: Reports: Hypothyroidism Insulin Pump Model and Broadcast Engineer: None Hematologic History: Reports: None Immunologic History: Reports: None Oncologic (Cancer) History: Reports: None Dermatologic History: Reports: None - Infectious Disease History Infectious Disease History: Reports: Chicken Pox - Past Surgical History Head Surgeries/Procedures: Reports: None HEENT Surgical History: Reports: None GI Surgical History: Reports: None Female Surgical History: Reports: None Social & Family History - Family History Family Medical History: No Pertinent Family History - Tobacco Use Tobacco Use Status *Q: Never Tobacco User - Caffeine Use Caffeine Use: Reports: Coffee - Recreational Drug Use Recreational Drug Use: No ED ROS GENERAL - Review of Systems Review Of Systems: See Below Free Text/Narrative/Comment: General: No fever. Skin: No rash. Eyes: No vision problems. ENT: No sore throat. Neck: No neck stiffness. Respiratory: No shortness of breath. Cardiac: Per HPI Gastrointestinal: No nausea, vomiting or abdominal pain. Urinary: No dysuria. Musculoskeletal: No myalgias/arthralgias. Neurologic: No headache. ED EXAM, GENERAL - Physical Exam Exam: See Below Free Text/Narrative:: General Appearance: No acute distress, appears comfortable Skin: No rash HEENT: Normocephalic/atraumatic, sclera anicteric, mucous membranes moist Neck: Normal range of motion Chest and Lungs: Bilateral breath sounds, clear to auscultation Cardiovascular: Regular rate and rhythm, no murmur Abdomen: Soft, non-tender Back: Normal Musculoskeletal: No edema or tenderness Neurologic: Awake, alert, no obvious deficits, moving all extremities Psychiatric: Appropriate, cooperative #1 Interpretation EKG Date: 05/17/20 Time: 13:35 EKG Interpretation Comments: Sinus rhythm rate of 78 significant artifact inferiorly but no acute ischemia normal intervals. Course - Vital Signs Last Recorded V/S: Last Vital Signs Temp 96.8 F L 05/17/20 13:38 Pulse 78 05/17/20 13:38 Resp 16 05/17/20 13:38 BP 161/79 H 05/17/20 13:38 Pulse Ox 97 05/17/20 13:38 - Orders/Labs/Meds Orders: Active Orders 24 hr Category Date Time Status Sodium Chloride 0.9% [Saline Flush] Med 05/17/20 13:53 Active 10 ml FLUSH ASDIRECTED PRN Sodium Chloride 0.9% [Saline Flush] Med 05/17/20 13:53 Active 2.5 ml FLUSH ASDIRECTED PRN Saline Lock Insert [OM.PC] Stat Oth 05/17/20 13:53 Ordered Medication Orders Sodium Chloride (Saline Flush) 10 ml FLUSH ASDIRECTED PRN PRN Reason: Keep Vein Open Last Admin: 05/17/20 13:59 Dose: 10 ml Documented by: [id number] Sodium Chloride (Saline Flush) 2.5 ml FLUSH ASDIRECTED PRN PRN Reason: Keep Vein Open Last Admin: 05/17/20 13:59 Dose: 2.5 ml Documented by: [id number] Labs: Laboratory Tests 05/17/20 05/17/20 05/17/20 Range/Units 13:39 13:39 13:39 WBC 7.59 (4.0-11.0) K/uL RBC 4.23 L (4.30-5.90) M/uL Hgb 13.4 (12.0-16.0) g/dL Hct 39.6 (36.0-46.0) % MCV 93.6 (80.0-98.0) fL MCH 31.7 (27.0-32.0) pg MCHC 33.8 (31.0-37.0) g/dL RDW Std Deviation 40.3 (28.0-62.0) fl RDW Coeff of [place] 12 (11.0-15.0) % Plt Count 262 (150-400) K/uL MPV 9.40 (7.40-12.00) fL Neut % (Auto) 60.3 (48.0-80.0) % Lymph % (Auto) 29.9 (16.0-40.0) % [place] % (Auto) 5.8 (0.0-15.0) % Eos % (Auto) 3.7 (0.0-7.0) % Baso % (Auto) 0.3 (0.0-1.5) % Neut # (Auto) 4.6 (1.4-5.7) K/uL Lymph # (Auto) 2.3 (0.6-2.4) K/uL [place] # (Auto) 0.4 (0.0-0.8) K/uL Eos # (Auto) 0.3 (0.0-0.7) K/uL Baso # (Auto) 0.0 (0.0-0.1) K/uL Nucleated RBC % 0.0 /100WBC Nucleated RBCs # 0 K/uL D-Dimer, Quantitative 0.79 H (0.0-0.50) mg/L FEU Sodium 139 (136-145) mmol/L Potassium 3.5 (3.5-5.1) mmol/L Chloride 99 (98-107) mmol/L Carbon Dioxide 30.2 (21.0-32.0) mmol/L BUN 19 H (7.0-18.0) mg/dL Creatinine 1.0 (0.6-1.0) mg/dL Est Cr Clr Drug Dosing 34.30 mL/min Estimated GFR (MDRD) 53.1 ml/min Glucose 164 H (74-106) mg/dL Calcium 9.9 (8.5-10.1) mg/dL Total Bilirubin 0.3 (0.2-1.0) mg/dL AST 21 (15-37) IU/L ALT 25 (14-63) IU/L Alkaline Phosphatase 74 (46-116) U/L Troponin I < 0.050 (0.000-0.056) ng/mL Total Protein 7.7 (6.4-8.2) g/dL Albumin 4.0 (3.4-5.0) g/dL Globulin 3.7 (2.6-4.0) g/dL Albumin/Globulin Ratio 1.1 (0.9-1.6) Meds: Medications Generic Name Dose Route Start Last Admin Trade Name Freq PRN Reason Stop Dose Admin Sodium Chloride 10 ml 05/17/20 13:53 05/17/20 13:59 Saline Flush FLUSH 10 ml ASDIRECTED PRN Administration Keep Vein Open Sodium Chloride 2.5 ml 05/17/20 13:53 05/17/20 13:59 Saline Flush FLUSH 2.5 ml ASDIRECTED PRN Administration Keep Vein Open Departure - Departure Time of Disposition: 14:51 Disposition: Home, Self-Care 01 Condition: Good Clinical Impression: Chest pain - Discharge Information *PRESCRIPTION DRUG MONITORING PROGRAM REVIEWED*: Not Applicable *COPY OF PRESCRIPTION DRUG MONITORING REPORT IN PATIENT ANTON: Not Applicable Instructions: Nonspecific Chest Pain, Adult Forms: ED Department Discharge Additional Instructions: Your evaluation today showed a normal EKG and normal chest x-ray and normal blood work. I see no signs that suggest that this pain is coming from your heart. However, all I have is a snapshot in time. If you develop severe chest pain or any other new symptoms that concern you I encourage you to seek medical attention right away. Even if you continue to feel well please follow-up with your primary care doctor. The following information is given to patients seen in the emergency department who are being discharged to home. This information is to outline your options for follow-up care. We provide all patients seen in our emergency department with a follow-up referral. The need for follow-up, as well as the timing and circumstances, are variable depending upon the specifics of your emergency department visit. If you don't have a primary care physician on staff, we will provide you with a referral. We always advise you to contact your personal physician following an emergency department visit to inform them of the circumstance of the visit and for follow-up with them and/or the need for any referrals to a consulting specialist. The emergency department will also refer you to a specialist when appropriate. This referral assures that you have the opportunity for follow-up care with a specialist. All of these measure are taken in an effort to provide you with optimal care, which includes your follow-up. Under all circumstances we always encourage you to contact your private physician who remains a resource for coordinating your care. When calling for follow-up care, please make the office aware that this follow-up is from your recent emergency room visit. If for any reason you are refused follow-up, please contact the [facility] Emergency Department at and asked to speak to the emergency department charge nurse. Sepsis Event Note (ED) - Evaluation Sepsis Screening Result: No Definite Risk - Focused Exam Vital Signs: Vital Signs Temp Pulse Resp BP Pulse Ox 05/17/20 13:38 96.8 F L 78 16 161/79 H 97 - My Orders Last 24 Hours: My Active Orders 05/17/20 13:53 Sodium Chloride 0.9% [Saline Flush] 10 ml FLUSH ASDIRECTED PRN Sodium Chloride 0.9% [Saline Flush] 2.5 ml FLUSH ASDIRECTED PRN Saline Lock Insert [OM.PC] Stat - Assessment/Plan Last 24 Hours: My Active Orders 05/17/20 13:53 Sodium Chloride 0.9% [Saline Flush] 10 ml FLUSH ASDIRECTED PRN Sodium Chloride 0.9% [Saline Flush] 2.5 ml FLUSH ASDIRECTED PRN Saline Lock Insert [OM.PC] Stat Assessment:: 84-year-old female presenting with signs and symptoms of be very atypical for cardiac related chest pain EKG is nonischemic troponin is pending. PE considered I think it unlikely but given age D-dimer sent. Pneumonia pneumothorax considered likewise unlikely but chest x-ray pending. Reflux is a consideration though symptoms atypical for this pleurisy is certainly a consideration costochondritis possible as well. Other etiologies considered nothing that suggest aortic dissection. Patient is asymptomatic right now if continues to feel well and evaluation reassuring could likely go home to follow- up with primary care. HEART score would be 3 if trop is normal. 1450: The patient's labs are normal. D-dimer is normal when adjusted for age. Chest x-ray is without any acute pathology. Patient remains comfortable in the ER. Given this reassuring work-up and the patient's reliable follow-up patient felt stable for discharge strict return precautions discussed and understood will follow up with her primary care doctor.
[2020-05-17 14:17] LABS: BLOOD UREA NITROGEN,BUN 19 mg/dL (7.0-18.0); CARBON DIOXIDE,CO2 30.2 mmol/L (21.0-32.0); CHLORIDE,CL 99 mmol/L (98-107); GLUCOSE RANDOM 164 mg/dL (74-106); POTASSIUM,K 3.5 mmol/L (3.5-5.1); SODIUM,NA 139 mmol/L (136-145)
--- NOTE | 2020-05-17 14:40 | CR ---
INDICATION: Chest pain TECHNIQUE: Chest radiograph 2 views COMPARISON: None FINDINGS: Mediastinum: The mediastinum is normal in appearance. The heart silhouette is normal in size and morphology. Lung: Both lungs are unremarkable in appearance. No sign of pleural effusion seen. No pneumothorax is identified. Bone and Soft tissue: Unremarkable for age. IMPRESSION: 1. No acute cardiopulmonary disease is seen. Dictated by: Ceferino Hubbard MD @ 05/17/2020 14:37:51 (Electronically Signed)
[2020-05-17 15:04] VITALS: BP 134/70; PULSE 71
== END 2020-05-17 15:04 | disposition home or self-care (01) ==
LOC: MW.ED 13:28
DX: R07.9 Chest pain, unspecified (principal); E03.9 Hypothyroidism, unspecified; I25.2 Old myocardial infarction; I10 Essential (primary) hypertension; Z79.899 Other long term (current) drug therapy
CPT/HCPCS: 36415; 71046; 71046-26; 80053; 84484; 85025; 85379; 93005; 93010; 99284; 99285-25

== ENCOUNTER 2020-09-18 11:23 | Emergency (ER) | payer MEDICARE, BC ==
--- NOTE | 2020-09-18 11:53 | EDM.PDOC ---
ED HPI GENERAL MEDICAL PROBLEM - General Chief Complaint: Genitourinary Problem Stated Complaint: BLADDER INFECTION Time Seen by Provider: 09/18/20 11:31 Source of Information: Reports: Patient History Limitations: Reports: No Limitations - History of Present Illness INITIAL COMMENTS - FREE TEXT/NARRATIVE: Patient is a 85-year-old female who presents today for increased urination and fullness. Patient states that started yesterday. Patient denies seeing any blood in her urine any fever chills abdominal pain. Patient is still tolerating PO. Patient states she gets recurrent UTIs. urinary tract Pain Score (Numeric/FACES): 3 - Related Data Allergies Allergy/AdvReac Type Severity Reaction Status Date / Time No Known Allergies Allergy Verified 05/17/20 13:38 Home Meds: Home Meds Levothyroxine 112 mcg PO DAILY 01/26/16 [History] Losartan/Hydrochlorothiazide [Losartan-HCTZ 100-25 MG] 1 each PO DAILY 01/26/16 [History] Metaxalone [Skelaxin] 800 mg PO TID #30 tab 11/22/19 [Rx] traMADol [Ultram] 50 mg PO Q6H PRN #20 tab 11/22/19 [Rx] Nitrofurantoin Monohyd/M-Cryst [Macrobid 100 mg Capsule] 100 mg PO BID 5 Days #10 capsule 09/18/20 [Rx] Past Medical History HEENT History: Reports: None Cardiovascular History: Reports: Hypertension Respiratory History: Reports: None Gastrointestinal History: Reports: None Genitourinary History: Reports: UTI, Recurrent CLERK SPECIALIST History: Reports: Musculoskeletal History: Reports: None Neurological History: Reports: None Psychiatric History: Reports: None Endocrine/Metabolic History: Reports: Hypothyroidism Insulin Pump Model and Winterizer: None Hematologic History: Reports: None Immunologic History: Reports: None Oncologic (Cancer) History: Reports: None Dermatologic History: Reports: None - Infectious Disease History Infectious Disease History: Reports: Chicken Pox - Past Surgical History Head Surgeries/Procedures: Reports: None HEENT Surgical History: Reports: None GI Surgical History: Reports: None Female Surgical History: Reports: None Social & Family History - Family History Family Medical History: No Pertinent Family History - Caffeine Use Caffeine Use: Reports: Coffee ED ROS GENERAL - Review of Systems Review Of Systems: See Below Constitutional: Reports: No Symptoms HEENT: Reports: No Symptoms Respiratory: Reports: No Symptoms Cardiovascular: Reports: No Symptoms Endocrine: Reports: No Symptoms GI/Abdominal: Reports: No Symptoms : Reports: Dysuria Musculoskeletal: Reports: No Symptoms Skin: Reports: No Symptoms Neurological: Reports: No Symptoms Psychiatric: Reports: No Symptoms Hematologic/Lymphatic: Reports: No Symptoms Immunologic: Reports: No Symptoms ED EXAM, RENAL/ - Physical Exam Exam: See Below Exam Limited By: No Limitations General Appearance: Alert, WD/WN Respiratory/Chest: No Respiratory Distress Cardiovascular: Normal Peripheral Pulses GI/Abdominal: Normal Bowel Sounds, Soft, Non-Tender Neurological: Alert, Oriented, Normal Cognition, Normal Gait Course - Vital Signs Last Recorded V/S: Last Vital Signs Temp 97.4 F 09/18/20 11:57 Pulse 85 09/18/20 11:57 Resp 18 09/18/20 11:57 BP 131/92 H 09/18/20 11:57 Pulse Ox 98 09/18/20 11:57 - Orders/Labs/Meds Labs: Laboratory Tests 09/18/20 Range/Units 11:54 Urine Color YELLOW Urine Appearance SLT CLOUDY Urine pH 6.5 (5.0-8.0) Ur Specific [place] 1.010 (1.001-1.035) Urine Protein NEGATIVE (NEGATIVE) mg/dL Urine Glucose (UA) NEGATIVE (NEGATIVE) mg/dL Urine Ketones NEGATIVE (NEGATIVE) mg/dL Urine Occult Blood TRACE-INTACT H (NEGATIVE) Urine Nitrite NEGATIVE (NEGATIVE) Urine Bilirubin NEGATIVE (NEGATIVE) Urine Urobilinogen 0.2 (<2.0) EU/dL Ur Leukocyte Esterase LARGE H (NEGATIVE) Urine RBC 1-3 (0-2/HPF) Urine WBC TO NUMEROUS TO COUNT H (0-5/HPF) Ur Epithelial Cells FEW (NONE-FEW) Urine Bacteria 2+ H (NEGATIVE) - Re-Assessments/Exams Free Text/Narrative Re-Assessment/Exam: 09/18/20 12:45 UA is positive for UTI. Will start patient on Macrobid and follow-up culture. Departure - Departure Time of Disposition: 12:45 Disposition: Home, Self-Care 01 Condition: Good Clinical Impression: UTI (urinary tract infection) Qualifiers: Urinary tract infection type: site unspecified Hematuria presence: without hematuria Qualified Code(s): N39.0 - Urinary tract infection, site not specified - Discharge Information *PRESCRIPTION DRUG MONITORING PROGRAM REVIEWED*: Not Applicable *COPY OF PRESCRIPTION DRUG MONITORING REPORT IN PATIENT ANTON: Not Applicable Prescriptions: Nitrofurantoin Monohyd/M-Cryst [Macrobid 100 mg Capsule] 100 mg PO BID 5 Days #10 capsule Instructions: Urinary Tract Infection, Adult, [id number] Referrals: Symone Moreland [facility] DEPARTMENT CHAIR [Primary Care Provider] - Forms: ED Department Discharge Additional Instructions: The following information is given to patients seen in the emergency department who are being discharged to home. This information is to outline your options for follow-up care. We provide all patients seen in our emergency department with a follow-up referral. The need for follow-up, as well as the timing and circumstances, are variable depending upon the specifics of your emergency department visit. If you don't have a primary care physician on staff, we will provide you with a referral. We always advise you to contact your personal physician following an emergency department visit to inform them of the circumstance of the visit and for follow-up with them and/or the need for any referrals to a consulting specialist. The emergency department will also refer you to a specialist when appropriate. This referral assures that you have the opportunity for follow-up care with a specialist. All of these measure are taken in an effort to provide you with optimal care, which includes your follow-up. Under all circumstances we always encourage you to contact your private physician who remains a resource for coordinating your care. When calling for follow-up care, please make the office aware that this follow-up is from your recent emergency room visit. If for any reason you are refused follow-up, please contact the [facility] Emergency Department at and asked to speak to the emergency department charge nurse. Please follow up with your primary care physician. If you do not have a primary care physician, see below: [facility] [address] [place] [address] [id number] [facility] [address] [place] [id number] You were seen today for increased urination. Your urinalysis shows a UTI. We will start you on antibiotics. If you have any other concerns or complaints please return to the ED or follow-up with your primary care physician. Sepsis Event Note (ED) - Focused Exam Vital Signs: Vital Signs Temp Pulse Resp BP Pulse Ox 09/18/20 11:57 97.4 F 85 18 131/92 H 98 - Assessment/Plan Plan: Patient is a 85-year-old female who presents today for increased urination. Patient has no abdominal tenderness no CVA tenderness patient looks well on exam we will send UA and reassess.
[2020-09-18 12:03] VITALS: BP 131/92; PULSE 85
== END 2020-09-18 12:54 | disposition home or self-care (01) ==
LOC: MW.ED 11:23
DX: N39.0 Urinary tract infection, site not specified (principal); I10 Essential (primary) hypertension; E03.9 Hypothyroidism, unspecified; Z79.899 Other long term (current) drug therapy
CPT/HCPCS: 81001; 99283

== ENCOUNTER 2022-08-30 07:36 | Emergency (ER) | payer MEDICARE, BC ==
[2022-08-30] MEDS ORDERED: Sodium Chloride 0.9% 2.5 ML Syringe FLUSH PRN (08:10)
[2022-08-30] MEDS ORDERED: Sodium Chloride 0.9% 10 ML Syringe FLUSH PRN (08:10)
[2022-08-30 09:18] LABS: CARBON DIOXIDE,CO2 29.9 mmol/L (21.0-32.0); POTASSIUM,K 4.1 mmol/L (3.5-5.1)
[2022-08-30 10:35] VITALS: BP 169/76; PULSE 66
== END 2022-08-30 10:34 | disposition home or self-care (01) ==
LOC: MW.ED 07:36
DX: R30.0 Dysuria (principal); I10 Essential (primary) hypertension; E03.9 Hypothyroidism, unspecified; Z79.899 Other long term (current) drug therapy
CPT/HCPCS: 36415; 80053; 81001; 85025; 87086; 99283; J3490

== ENCOUNTER 2024-09-06 11:26 | Emergency (ER) | payer MEDICARE, BC ==
[2024-09-06 12:03] LABS: BASOPHILS ABSOLUTE AUTO 0.04 K/uL (0.00-0.20); BASOPHILS PERCENT AUTO 0.6 % (0.0-1.0); EOSINOPHILS ABSOLUTE AUTO 0.21 K/uL (0.00-0.45); EOSINOPHILS PERCENT AUTO 3.3 % (0.0-6.0); HEMATOCRIT 33.9 % (37.0-47.0); HEMOGLOBIN 11.9 g/dL (12.0-16.0); IMMATURE GRAN ABSOLUTE AUTO 0.01 K/uL (0.00-0.05); IMMATURE GRAN PERCENT AUTO 0.2 % (0.0-0.4); LYMPHOCYTES ABSOLUTE AUTO 1.92 K/uL (1.00-4.80); LYMPHOCYTES PERCENT AUTO 30.2 % (24.0-44.0); MEAN CORPUSCULAR HEMOGLOBIN 31.7 pg (28.0-32.0); MEAN CORPUSCULAR HGB CONC 35.1 g/dL (32.0-36.0); MEAN CORPUSCULAR VOLUME 90.4 fL (83.0-99.0); MEAN PLATELET VOLUME 8.4 fL (9.4-12.3); MONOCYTES ABSOLUTE AUTO 0.63 K/uL (0.00-0.80); MONOCYTES PERCENT AUTO 9.9 % (0.0-8.0); NEUTROPHILS ABSOLUTE AUTO 3.55 K/uL (1.80-7.70); NEUTROPHILS PERCENT AUTO 55.8 % (41.0-71.0); PLATELET COUNT,PLT 239 K/uL (150-400); RED BLOOD CELL COUNT 3.75 M/uL (4.10-5.30); WHITE BLOOD CELL COUNT,WBC 6.36 K/uL (3.9-11.3)
[2024-09-06 12:28] LABS: CALCIUM 9.4 mg/dL (8.5-10.1); CARBON DIOXIDE,CO2 30.5 mmol/L (21.0-32.0); EST CRCL DRUG DOSING (CG) 32.79 mL/min; POTASSIUM,K 3.9 mmol/L (3.5-5.1)
[2024-09-06 12:49] LABS: APPEARANCE,URINE SLT CLOUDY; BILIRUBIN,URINE NEGATIVE (NEGATIVE); COLOR,URINE YELLOW; GLUCOSE,URINE NEGATIVE (NEGATIVE); KETONES,URINE NEGATIVE (NEGATIVE); LEUKOCYTE ESTERASE,URINE MODERATE (NEGATIVE); NITRITE,URINE POSITIVE (NEGATIVE); OCCULT BLOOD,URINE NEGATIVE (NEGATIVE); PROTEIN,URINE NEGATIVE (NEGATIVE); UROBILINOGEN,URINE 0.2 EU/dL (<2.0)
[2024-09-06 12:56] LABS: BACTERIA,URINE 3+ (NEGATIVE); EPITHELIAL CELLS,URINE FEW (NONE-FEW); MUCUS,URINE LIGHT (NONE-MOD); RBC,URINE NONE SEEN (0-2/HPF)
[2024-09-06] MEDS: Cephalexin 500 MG Cap PO ONE (13:35)
[2024-09-06 13:49] VITALS: BP 150/47; PULSE 68
== END 2024-09-06 13:49 | disposition home or self-care (01) ==
LOC: MW.ED 11:26
DX: N12 Tubulo-interstitial nephritis, not specified as acute or chronic (principal); I10 Essential (primary) hypertension; E03.9 Hypothyroidism, unspecified; Z79.890 Hormone replacement therapy; Z79.899 Other long term (current) drug therapy
CPT/HCPCS: 36415; 80048; 81001; 85025; 99284; A9270; 99283

== ENCOUNTER 2025-01-18 15:14 | Emergency (ER) | payer MEDICARE, BC ==
[2025-01-18 15:31] LABS: APPEARANCE,URINE SLT CLOUDY; GLUCOSE,URINE NEGATIVE (NEGATIVE); OCCULT BLOOD,URINE TRACE-INTACT (NEGATIVE)
[2025-01-18 15:44] LABS: EPITHELIAL CELLS,URINE FEW (NONE-FEW)
[2025-01-18 17:52] VITALS: BP 143/72; PULSE 70
== END 2025-01-18 17:51 | disposition home or self-care (01) ==
LOC: MW.ED 15:14
DX: N39.0 Urinary tract infection, site not specified (principal); I10 Essential (primary) hypertension; E03.9 Hypothyroidism, unspecified; Z79.890 Hormone replacement therapy; Z79.899 Other long term (current) drug therapy
CPT/HCPCS: 81001; 87086; 87088; 87186; 99283